=== PATIENT | male | born 1985 | race Caucasian/White ===

== ENCOUNTER 2019-08-05 16:26 | Emergency (ER) | payer OTHER ==
[2019-08-05 16:51] VITALS: BP 133/86; PULSE 80; TEMP 98.6; BMI 31.3
[2019-08-05] MEDS ORDERED: DIPHTH,PERTUSS(ACELL),TET 0.5 ML DISP.SYRIN IM ONE ×2 (16:59→17:13)
--- NOTE | 2019-08-05 17:01 | PDOC ---
History of Present Illness - General Chief Complaint: Laceration Stated Complaint: I CUT MY FINGER Time Seen by Provider: 08/05/19 16:52 History Source: Patient Exam Limitations: No Limitations - History of Present Illness Initial Comments: 08/05/19 17:06 34-year-old gentleman no significant past medical history presenting with complaint of thumb laceration, The patient was wiping his knife but was not covered with a cloth and sliced into his l thumb. Patient denies any numbness, tingling, Weakness. Last tetanus was unkonwn. exam: L hand: xx laceration on distal aspect of L thumb pad, mild bleeding, sensation intact distally, no fb noted will update tetanus Past History - Past Medical History Allergies/Adverse Reactions: Allergies Allergy/AdvReac Type Severity Reaction Status Date / Time No Known Allergies Allergy Verified 08/05/19 16:28 Home Medications: Ambulatory Orders Cephalexin Monohydrate [Keflex -] 500 mg PO Q8H #9 capsule 08/05/19 COPD: No Other medical history: DENIES - Psycho Social/Smoking Cessation Hx Smoking History: Current every day smoker Number of Cigarettes Smoked Daily: 20 Information on smoking cessation initiated: Yes Hx Alcohol Use: Yes (WEEKLY) Drug/Substance Use Hx: No *Physical Exam - Vital Signs Last Vital Signs Temp Pulse Resp BP Pulse Ox 98.6 F 80 16 133/86 100 08/05/19 16:28 08/05/19 16:28 08/05/19 16:28 08/05/19 16:28 08/05/19 16:28 Procedures - Consent Consent obtained: Verbal - Laceration/Wound Repair Left Medial Volar 1st digit Wound Length: to 2.5 cm Wound Explored: clean Wound's Depth, Shape: superficial Irrigated w/ Saline: Yes Anesthesia: 1% Lidocaine Amount of Anesthetic (ccs): 6 Wound Debrided: minimal Wound Repaired With: Sutures Suture Size/Type: 4:0 Number of Sutures: 6 Layer Closure: No Sterile Dressing Applied: Yes Medical Decision Making - Medical Decision Making 08/05/19 17:57 closed with good approximation will dc with supportive care an dprophylaxic abx Discharge - Discharge Information Problems reviewed: Yes Clinical Impression/Diagnosis: Laceration of thumb Qualifiers: Encounter type: initial encounter Damage to nail status: without damage Foreign body presence: without foreign body Laterality: left Qualified Code(s): S61.012A - Laceration without foreign body of left thumb without damage to nail , initial encounter Condition: Improved Disposition: HOME - Admission No - Additional Discharge Information Prescriptions: Cephalexin Monohydrate [Keflex -] 500 mg PO Q8H #9 capsule - Follow up/Referral - Patient Discharge Instructions Patient Printed Discharge Instructions: DI for Laceration Repair Additional Instructions: Return to the emergency department immediately with ANY new, persistent or worsening symptoms including any redness, bleeding, purulent discharge, swelling or other concerns. Keep the area clean and dry for 48 hours. Afterwards he may clean gently with soap and water. Apply bacitracin twice a day. Return in 10-14 days for suture removal. You MUST call and follow up with your doctor tomorrow for further evaluation of your symptoms. Results were discussed with you. Please make sure your doctor reviews the results of your emergency evaluation. Print Language: MALTESE - Post Discharge Activity
--- NOTE | 2019-08-05 17:42 | PDOC ---
Discharge - Discharge Information Problems reviewed: Yes Clinical Impression/Diagnosis: Laceration of thumb Qualifiers: Encounter type: initial encounter Damage to nail status: without damage Foreign body presence: without foreign body Laterality: left Qualified Code(s): S61.012A - Laceration without foreign body of left thumb without damage to nail , initial encounter Condition: Improved Disposition: HOME - Additional Discharge Information Prescriptions: Cephalexin Monohydrate [Keflex -] 500 mg PO Q8H #9 capsule - Follow up/Referral - Patient Discharge Instructions Patient Printed Discharge Instructions: DI for Laceration Repair Additional Instructions: Return to the emergency department immediately with ANY new, persistent or worsening symptoms including any redness, bleeding, purulent discharge, swelling or other concerns. Keep the area clean and dry for 48 hours. Afterwards he may clean gently with soap and water. Apply bacitracin twice a day. Return in 10-14 days for suture removal. You MUST call and follow up with your doctor tomorrow for further evaluation of your symptoms. Results were discussed with you. Please make sure your doctor reviews the results of your emergency evaluation. Print Language: NORWEGI[place] - Post Discharge Activity Procedures - Laceration/Wound Repair Right 1st digit Wound Length: to 2.5 cm Wound Explored: clean, no foreign body present Wound's Depth, Shape: superficial Irrigated w/ Saline: Yes Betadine Prep: No Anesthesia: 1% Lidocaine Amount of Anesthetic (ccs): 5 Wound Repaired With: Sutures Suture Size/Type: 4:0 Number of Sutures: 6 Splint Applied: No Progress: Wound covered with bacitracin and non-adherent gauze dressing.
== END 2019-08-05 18:07 | disposition home or self-care (01) ==
LOC: FER 16:26
PROC: 0HQGXZZ Repair Left Hand Skin, External Approach (ICD-10-PCS; principal; 2019-08-05)
PROC: 3E0234Z Introduction of Serum, Toxoid and Vaccine into Muscle, Percutaneous Approach (ICD-10-PCS; 2019-08-05)
DX: S61.012A Laceration without foreign body of left thumb without damage to nail, initial encounter (principal); W26.0XXA Contact with knife, initial encounter; Y93.89 Activity, other specified; Y92.9 Unspecified place or not applicable
CPT/HCPCS: 90715; 99282-25

== ENCOUNTER 2023-07-23 12:59 | Emergency (ER) | payer SELFPAY ==
[2023-07-23 13:05] VITALS: BP 158/100; PULSE 83; RESP 16; TEMP 98.7; BMI 29.7
== END 2023-07-23 13:50 | disposition home or self-care (01) ==
LOC: FER 12:59
PROC: 0HQGXZZ Repair Left Hand Skin, External Approach (ICD-10-PCS; principal; 2023-07-23)
DX: S61.215A Laceration without foreign body of left ring finger without damage to nail, initial encounter (principal); W26.8XXA Contact with other sharp object(s), not elsewhere classified, initial encounter
CPT/HCPCS: 99282-25